=== PATIENT | male | born 1980 ===

== ENCOUNTER 2024-11-29 05:31 | Emergency (ER) | payer BC, OTHER ==
[~2024-11-29] VITALS: Ht 175.3 cm; Wt 93.1 kg
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
[2024-11-29] MEDS ORDERED: GENT0.3S10 EACHEYE (07:31)
[2024-11-29 07:34] VITALS: BP 151/101; PULSE 79; RESP 16; TEMP 98.7; O2SAT 95
== END 2024-11-29 07:36 | disposition home or self-care (01) ==
LOC: ER 05:31
DX: H10.212 Acute toxic conjunctivitis, left eye (principal)